=== PATIENT | female | born 1960 | race Caucasian/White ===

== ENCOUNTER 2021-07-15 13:00 | Outpatient (CLI) | payer MEDICARE, MEDICAID, SELFPAY ==
--- NOTE | 2021-07-15 13:23 | XRR_ITS ---
PROCEDURE INFORMATION: Exam: XR Right Hip Exam date and time: 07/15/2021 1:31 PM Age: 60 years old Clinical indication: Fall with blunt trauma involving the right hip and right foot. Injury date: 2 months ago. Accidental fall/acute hip pain TECHNIQUE: Imaging protocol: XR Right hip. Views: 1 view hip with pelvis when performed. COMPARISON: No relevant prior studies available. FINDINGS: Tubes, catheters and devices: Probable bilateral tubal ligation. Bones/joints: No significant osteoarthritis at the right hip. No fracture, dislocation or subluxation. No periosteal reaction or supsicious bone lesion. There is enthesophytes at the insertions of the gluteus medius and minimus tendons. Soft tissues: There is lateral soft tissue swelling with soft tissue opacities in the projection of the subcutaneous fat. This could reflect an underlying hematoma. Consider CT. XR/XR hip RT 2-3V wo/w pel* [id number] IMPRESSION: 1. Right lateral soft tissue swelling at the hip with soft tissue opacities in the projection of the subcutaneous fat. This could reflect an underlying hematoma. Consider CT to better characterize. 2. No acute fracture is seen.
--- NOTE | 2021-07-15 13:23 | XRR_ITS ---
PROCEDURE INFORMATION: Exam: XR Right Foot Exam date and time: 07/15/2021 1:31 PM Age: 60 years old Clinical indication: Fall with trauma and pain 2 months ago. Right hip and right foot pain. Accidental fall/acute foot pain TECHNIQUE: Imaging protocol: XR Right foot. Views: 3 or more views. COMPARISON: No relevant prior studies available. FINDINGS: Bones/joints: Posterior calcaneal spur. The visualized Achilles tendon is grossly normal in morphology. No tibiotalar joint effusion. No fracture, dislocation or subluxation. No periosteal reaction or supsicious bone lesion. Soft tissues: There is mild dorsal soft tissue swelling. XR/XR foot RT min 3V* [id number] IMPRESSION: 1. No acute fracture is seen. 2. Mild dorsal soft tissue swelling. 3. Posterior calcaneal spur.
== END 2021-07-15 13:01 | disposition home or self-care (01) ==
LOC: RAD 13:04
PROVIDERS: Visit Provider Nurse Practitioner
DX: M25.551 Pain in right hip (principal); M79.671 Pain in right foot; W19.XXXA Unspecified fall, initial encounter; M77.31 Calcaneal spur, right foot; M79.89 Other specified soft tissue disorders
CPT/HCPCS: 73502; 73630

== ENCOUNTER 2022-02-10 09:40 | Emergency (ER) | payer MEDICARE, MEDICAID, SELFPAY ==
[2022-02-10 09:46] VITALS: BP 116/87; PULSE 82; RESP 16; TEMP 36.4; O2SAT 98; BMI 27.4
--- NOTE | 2022-02-10 10:12 | XR_ITS ---
WS: [id number] Thoracic spine, 3 views, 02/10/2022 Clinical Data: pain Comparison: Thoracic spine, 04/19/2017. Findings: No compression fractures are seen. The disc heights are normal. The paravertebral regions are normal. There is mild osteoarthritic change of all the thoracic vertebr al bodies. Demineralization is diffuse. XR/XR thoracic spine 3V* [id number] Impression: Osteoporosis and osteoarthritis.
--- NOTE | 2022-02-10 10:13 | W.ED.BACK ---
HPI - Back Pain/Injury General: Chief Complaint: Back Pain/Injury Stated Complaint: fall, back pain Time Seen by Provider: 02/10/22 09:54 Source: patient Mode of arrival: ambulatory Limitations: no limitations History of Present Illness: Patient is a 61-year-old female who presents to ED today with a complaint of acute on chronic back and hip pain. Patient tells me she has chronic pain to her lower back and right hip. She states back in November her PCP wrote her for x-ray orders of her lower back and right hip but states she had not been able to complete these so was wondering if they could be completed today. She also at some point had an x-ray of her hip performed back in June 2020 and radiologist was concerned about hematoma so had recommended CT imaging at that time and patient is also wondering if this could be completed today as well. She also has a complaint of an episode of thoracic back pain that began on Thursday. She states she began having some burning in her thoracic back that radiated into her chest. Symptoms lasted approximately 3 hours. She states she has not had any further episodes of chest discomfort since that incident but has continued having some thoracic back pain that seems to be worse with movement. She does not complain of any shortness of breath or difficulty breathing. No abdominal pain. MD elicited complaint: back pain Pertinent past history: prior back pain Timing: constant Similar Symptoms Previously: Yes Location: lumbar spine and thoracic spine Radiation: right leg below the knee Associated symptoms: Deny abdominal pain, difficulty walking, dysuria, fever(s), nausea, syncope or vomiting Work related injury: No Review of Systems Const: Denies: fever(s) Card: Denies: chest pain, palpitations, irregular heart rhythm, edema, swelling of feet/ankles, lightheadedness, syncope, pre-syncope, dyspnea on exertion, orthopnea, leg pain with exertion or acrocyanosis Resp: Denies: dyspnea GI: Denies: abdominal pain, nausea, vomiting or diarrhea : Denies: flank pain or dysuria Musc: Reports: back pain and joint pain (R hip-chronic); Denies: neck pain, extremity pain, extremity swelling, joint swelling, joint redness, joint warmth or limited range of motion Skin/Breast: Denies: rash Neuro: Denies: headache(s), numbness in extremities, weakness in extremities, sensory changes, difficulty walking or dizziness PFSH ED PFSH: Social History Smoking and tobacco status: current every day smoker Physical Exam Const: COMMON NORMALS: no acute distress, patient oriented x3, no limitations, alert and well nourished GENERAL APPEARANCE: cooperative ORIENTATION/CONSCIOUSNESS: Yes awake, Yes oriented to person, Yes oriented to place and Yes oriented to time OTHER: BPs performed in bilateral UEs and equal bilaterally HENMT: COMMON NORMALS: normocephalic and atraumatic HEAD & SCALP: normal to inspection, normocephalic and atraumatic Neck/C-Spine: COMMON NORMALS: full ROM, no JVD and No carotid bruits GENERAL: Yes normal visual inspection Chest: COMMONS NORMALS: normal inspection of the chest and normal palpation of entire chest wall Resp: COMMON NORMALS: normal respiratory effort and clear to auscultation bilaterally AUSCULTATION: clear to auscultation bilaterally Cardio: COMMON NORMALS: no JVD, regular rate and regular rhythm RATE: regular rate RHYTHM: regular rhythm GI: COMMON NORMALS: Normal to inspection, nondistended, normoactive bowel sounds present, Soft to palpation, non-tender, No hepatosplenomegaly present and no masses PALPATION: Yes Soft to palpation and Yes No hepatosplenomegaly present Back/Pelvis: THORACIC SPINE/UPPER BACK: Yes thoracic ROM normal, Yes pain with ROM, Yes thoracic spinal tenderness (mid to lower T spine-palpation reproduces pts pain) and No paraspinal muscle spasm LUMBAR SPINE/LOWER BACK: Yes normal to inspection, Yes lumbar ROM normal, Yes lumbar spinal tenderness (she states this is chronic), No paraspinal muscle tenderness and No paraspinal muscle spasm PELVIS: Yes buttocks normal SACROILIAC JOINTS: Yes SI joint(s) abnormal SI joint details: tender to palpation (right sided-she states this is chronic) Extremity: COMMON NORMALS: normal to inspection and capillary refill normal NARRATIVE EXTREMITY EXAM: normal distal pulses bilaterally GENERAL: Yes normal exam except as noted Neuro: ASHA COMA SCALE: document [facility] findings [place] coma scale eye opening: Spontaneous Asha coma scale verbal response: Orientated [place] coma scale motor response: Obey commands Asha coma scale total score: 15 COMMON NORMALS: patient oriented x3, moves all extremities, no focal motor deficits, no sensory deficits noted and gait normal SENSORIUM/ORIENTATION: Yes alert, Yes oriented to person, Yes oriented to place and Yes oriented to time Skin: COMMON NORMALS: no rashes or lesions noted GENERAL SKIN EXAM: no rashes or lesions noted Course Vital Signs: Vital signs: Vital Signs Temperature 97.6 F 02/10/22 09:46 Pulse Rate 78 02/10/22 11:17 Respiratory Rate 16 02/10/22 09:46 Blood Pressure 130/81 02/10/22 11:17 Pulse Oximetry 96 02/10/22 11:17 Oxygen Delivery Me thod 02/10/22 09:46 MDM - Back Pain/Injury Medical Decision Making Patient here with acute on chronic back and hip pain. She has outpatient orders with her for x-rays of her lumbar spine and right hip. These can be completed as an outpatient and there is no need to complete them from an ED standpoint. There is nothing on patient's history or physical exam to warrant emergent CT imaging. She did have an acute complaint of some thoracic back pain that began on Thursday. She initially had some radiation into her chest that lasted for a few hours before subsiding. She has not had any further episodes of chest pain, shortness of breath, difficulty breathing. No abdominal pain. Thoracic back pain was reproducible on exam and improved with IM Toradol and Norflex given here. I do not have any concern for this pain to be related to acute coronary syndrome, aortic/abdominal dissection, aneurysm, or rupture. Recommend she follow-up with primary care this week for reevaluation of symptoms persist. Return ED precautions given. Labs Radiology Impressions Thoracic Spine X-Ray 02/10/22 10:12 Impression: Osteoporosis and osteoarthritis. Discharge Plan Discharge Patient Disposition: Home Clinical Impression: Thoracic back pain Condition: Stable Prescriptions: New Medrol (Guy) 4 mg tablets,dose pack See Rx Instructions .ROUTE .COMPLEX Qty: 21 0RF Rx Instructions: orally per package directions Discontinued prednisone 20 mg tablet 40 mg PO DAILY Qty: 10 0RF No Action doxycycline hyclate 100 mg tablet 100 mg PO BID 7 Days Qty: 14 0RF Discharge Orders: Discharge ED (Routine); Ordered 02/10/22 Ordered By: Georgina Rodriguez Referrals: Melinda Vizcarra FNP [Primary Care Provider] - Coding Level of Care Code ED Pantograph Transferrer for Chg Fwd Exam Comprehensive
[2022-02-10] MEDS: orphenadrine 30 mg/mL Inj 2 mL 60 MG IM (10:28)
[2022-02-10] MEDS: ketorolac 30 mg/mL INJ IM (10:28)
[2022-02-10 11:17] VITALS: BP 130/81; PULSE 78; O2SAT 96
== END 2022-02-10 11:16 | disposition home or self-care (01) ==
PROVIDERS: Emergency Provider Physician Assistant; PCP Nurse Practitioner
DX: M54.6 Pain in thoracic spine (principal); F17.210 Nicotine dependence, cigarettes, uncomplicated
CPT/HCPCS: 72072; 96372; 99284; J1885; J2360